=== PATIENT | male | born 1985 | race Caucasian/White ===

== ENCOUNTER 2017-09-05 11:39 | Inpatient (IN) | payer OTHER ==
[2017-09-05 12:21] VITALS: BMI 23.3
--- NOTE | 2017-09-05 14:03 | HP ---
KATHIE OWEN Rehab Assess/Revision - Admission History Admitted to Rehab from: [facility] Date of Admission to Rehab: 09/05/17 - Vital signs Vital Signs: Vital Signs Period Temp Pulse Resp BP Sys/[facility] Pulse Ox Last 24 Hr 97.6 F 62 17 130/78 - Findings Detox History & Physical reviewed: Yes Concur with findings: Yes Comments/Additional Findings: PT RETURNED TO FOLLOW UP WITH REHAB AFTER COMPLETING DETOX. Inpatient Rehab Admission - Initial Determination Are CD services needed?: Yes Free of communicable disease: Yes Not in need of hospitalization: Yes - Rehab Admission Criteria Patient is meeting Inpatient Rehab admission criteria:: Yes
[2017-09-05] MEDS ORDERED: MAGNESIUM HYDROX 2400MG/30ML ORAL SUSPENSION 30 ML CUP PO PRN (14:05)
[2017-09-05] MEDS ORDERED: MENTHOL/PHENOL 1 EACH UD MM PRN (14:05)
[2017-09-05] MEDS ORDERED: MAGNESIUM CITRATE 300 ML BOTTLE PO PRN (14:05)
[2017-09-05] MEDS ORDERED: hydrOXYzine PAMOATE 50 MG CAPSULE (FP) PO PRN (14:05)
[2017-09-05] MEDS ORDERED: LOPERAMIDE HCL 2 MG CAPSULE PO PRN (14:05)
[2017-09-05] MEDS ORDERED: MAG HYDROX/AL HYDROX/SIMETH 30 ML UNIT-DOSE CUP PO PRN (14:05)
[2017-09-05] MEDS ORDERED: P-EPHED 60MG/TRIPROLIDI 2.5MG TABLET PO PRN (14:05)
[2017-09-05] MEDS ORDERED: guaiFENesin/D-METHORPHAN HB 10 ML UNIT-DOSE CUPS PO PRN (14:05)
[2017-09-05] MEDS ORDERED: IBUPROFEN 400 MG TABLET (FP) PO PRN (14:05)
[2017-09-05] MEDS ORDERED: ACETAMINOPHEN 325 MG TABLET (FP) PO PRN (14:05)
[2017-09-05] MEDS: NICOTINE 21 MG/24 HOURS TOPICAL PATCH TD SCH (16:50)
[2017-09-05 18:55] LABS: URINE APPEARANCE CLEAR; URINE BILIRUBIN NEGATIVE (<2.0 mg/dL); URINE COLOR YELLOW; URINE GLUCOSE (UA) NEGATIVE (NEGATIVE); URINE KETONE NEGATIVE (NEGATIVE); URINE LEUK ESTERASE NEGATIVE (NEGATIVE); URINE NITRITE NEGATIVE (NEGATIVE); URINE PROTEIN NEGATIVE (NEGATIVE); URINE UROBILINOGEN NEGATIVE mg/dL (0.2-1.0)
[2017-09-05] MEDS: TRIAMCINOLONE ACET 0.1% CREAM 80 GM TUBE TP SCH (21:45)
[2017-09-05] MEDS: PATIENT'S OWN MEDICATION (NON-FORMULARY) (Cetirizine Hcl [Cetirizine Hcl] 10 MG) PO SCH (21:45)
[2017-09-05] MEDS: THIAMINE HCL 100 MG TABLET (FP) PO SCH (21:45)
[2017-09-05] MEDS ORDERED: PATIENT'S OWN MEDICATION (NON-FORMULARY) (Cetirizine Hcl [Cetirizine Hcl] 10 MG) PO SCH (22:00)
[2017-09-06] MEDS: NICOTINE 21 MG/24 HOURS TOPICAL PATCH TD SCH (10:54)
[2017-09-06] MEDS: PRENATAL VITAMINS W/ FOLIC ACID TABLET (FP) PO SCH (10:54)
[2017-09-06] MEDS: TRIAMCINOLONE ACET 0.1% CREAM 80 GM TUBE TP SCH ×2 (10:54→21:30)
[2017-09-06] MEDS: NICOTINE POLACRILEX 4 MG GUM BUC PRN (20:10)
[2017-09-06] MEDS: PATIENT'S OWN MEDICATION (NON-FORMULARY) (Cetirizine Hcl [Cetirizine Hcl] 10 MG) PO SCH (21:30)
[2017-09-06] MEDS: THIAMINE HCL 100 MG TABLET (FP) PO SCH (21:30)
[2017-09-06] MEDS: MELATONIN 5 MG TABLETS PO PRN (21:31)
[2017-09-07] MEDS: PRENATAL VITAMINS W/ FOLIC ACID TABLET (FP) PO SCH (10:42)
[2017-09-07] MEDS: NICOTINE 21 MG/24 HOURS TOPICAL PATCH TD SCH (10:42)
[2017-09-07] MEDS: TRIAMCINOLONE ACET 0.1% CREAM 80 GM TUBE TP SCH ×2 (10:43→21:40)
[2017-09-07] MEDS: NICOTINE POLACRILEX 4 MG GUM BUC PRN (19:31)
[2017-09-07] MEDS: PATIENT'S OWN MEDICATION (NON-FORMULARY) (Cetirizine Hcl [Cetirizine Hcl] 10 MG) PO SCH (21:39)
[2017-09-07] MEDS: THIAMINE HCL 100 MG TABLET (FP) PO SCH (21:39)
[2017-09-07] MEDS: MELATONIN 5 MG TABLETS PO PRN (21:39)
[2017-09-08] MEDS: TRIAMCINOLONE ACET 0.1% CREAM 80 GM TUBE TP SCH ×2 (11:04→21:49)
[2017-09-08] MEDS: PRENATAL VITAMINS W/ FOLIC ACID TABLET (FP) PO SCH (11:04)
[2017-09-08] MEDS: NICOTINE 21 MG/24 HOURS TOPICAL PATCH TD SCH (11:04)
--- NOTE | 2017-09-08 11:07 | HP ---
Psychiatrist Admission - Data Date of interview: 09/08/17 Admission source: [address] [place] [address] detox Identifying data: this is the first admission to [address] [place] [address] rehabilitation for this 31 yo singe male,resides with mother, supported by family. Medical History: HTN,Eczema. Psychiatric History: patient reports some anxiety on and off.he was prescribed Paxil 10 mg po daily while being in rehab recently.patient is willing to continue Paxil 10 mg po daily.No previous psychiatric hospitalizations.No suicidal attempts reported. Physical/Sexual Abuse/Trauma History: denies Vital Signs: Vital Signs - 24 hr 09/08/17 09/08/17 09/08/17 00:30 03:30 07:44 Temperature 97.8 F Pulse Rate 58 L Respiratory 18 18 16 Rate Blood Pressure 123/82 Allergies/Adverse Reactions: Allergies Allergy/AdvReac Type Severity Reaction Status Date / Time No Known Drug Allergies Allergy Verified 09/05/17 12:54 Fish Containing Products AdvReac Swelling Verified 09/05/17 12:54 peanut AdvReac Swelling Verified 09/05/17 12:54 Date of last physical exam: 09/05/17 Concur with the findings of this exam: Yes - Substance Abuse/Tx History Hx Alcohol Use: Yes (reports drinking since 18 yo,beer 12 pack daily) Hx Substance Use: Yes (cocaine since 20 ,1 g daily) Substance Use Type: Alcohol, Cocaine Hx Substance Use Treatment: Yes (reports only 6 months abstinence ) Mental Status Exam - Mental Status Exam Alert and Oriented to: Time, Place, Person Cognitive Function: Grossly Intact Patient Appearance: Well Groomed Mood: Euthymic Affect: Appropriate, Mood Congruent Patient Behavior: Cooperative Speech Pattern: Clear Voice Loudness: Normal Thought Process: Goal Oriented Thought Disorder: Not Present Hallucinations: Denies Suicidal Ideation: Denies Homicidal Ideation: Denies Insight/Judgement: Fair Sleep: Fair Appetite: Good Muscle strength/Tone: Normal Gait/Station: Normal Psychiatric Findings - Problem List ([place] 1, 2,3) (1) Nicotine dependence Current Visit: Yes Status: Chronic Qualifiers: Nicotine product type: cigarettes Substance use status: in withdrawal Qualified Code(s): F17.213 - Nicotine dependence, cigarettes, with withdrawal (2) Cocaine dependence, uncomplicated Current Visit: Yes Status: Chronic (3) Eczema Current Visit: Yes Status: Chronic (4) History of hypertension Current Visit: Yes Status: Suspected Comment: Jakub reports that he has not taken anti-hypertensive medication for approx. 1 month. (5) Alcohol dependence Current Visit: Yes Status: Acute (6) Substance induced mood disorder Current Visit: Yes Status: Chronic - Initial Treatment Plan Initial Treatment Plan: Paxil 10 mg po daILY. WILL MONITOR PROGRESS.
[2017-09-08] MEDS: NICOTINE POLACRILEX 4 MG GUM BUC PRN ×2 (11:52→18:48)
[2017-09-08] MEDS: PARoxetine HCL 10 MG TABLET (FP) PO SCH (12:27)
[2017-09-08] MEDS: THIAMINE HCL 100 MG TABLET (FP) PO SCH (21:47)
[2017-09-08] MEDS: PATIENT'S OWN MEDICATION (NON-FORMULARY) (Cetirizine Hcl [Cetirizine Hcl] 10 MG) PO SCH (21:47)
[2017-09-08] MEDS: MELATONIN 5 MG TABLETS PO PRN (21:48)
[2017-09-09] MEDS: NICOTINE 21 MG/24 HOURS TOPICAL PATCH TD SCH (10:42)
[2017-09-09] MEDS: PARoxetine HCL 10 MG TABLET (FP) PO SCH (10:42)
[2017-09-09] MEDS: PRENATAL VITAMINS W/ FOLIC ACID TABLET (FP) PO SCH (10:42)
[2017-09-09] MEDS: NICOTINE POLACRILEX 4 MG GUM BUC PRN ×2 (10:44→20:00)
[2017-09-09] MEDS: TRIAMCINOLONE ACET 0.1% CREAM 80 GM TUBE TP SCH ×2 (10:45→21:31)
[2017-09-09] MEDS: THIAMINE HCL 100 MG TABLET (FP) PO SCH (21:31)
[2017-09-09] MEDS: MELATONIN 5 MG TABLETS PO PRN (21:31)
[2017-09-09] MEDS: PATIENT'S OWN MEDICATION (NON-FORMULARY) (Cetirizine Hcl [Cetirizine Hcl] 10 MG) PO SCH (21:31)
[2017-09-10] MEDS: NICOTINE POLACRILEX 4 MG GUM BUC PRN ×4 (06:34→22:01)
[2017-09-10] MEDS: PARoxetine HCL 10 MG TABLET (FP) PO SCH (10:57)
[2017-09-10] MEDS: NICOTINE 21 MG/24 HOURS TOPICAL PATCH TD SCH (10:58)
[2017-09-10] MEDS: PRENATAL VITAMINS W/ FOLIC ACID TABLET (FP) PO SCH (10:58)
[2017-09-10] MEDS: TRIAMCINOLONE ACET 0.1% CREAM 80 GM TUBE TP SCH ×2 (10:58→22:01)
[2017-09-10] MEDS: MELATONIN 5 MG TABLETS PO PRN (22:01)
[2017-09-10] MEDS: PATIENT'S OWN MEDICATION (NON-FORMULARY) (Cetirizine Hcl [Cetirizine Hcl] 10 MG) PO SCH (22:01)
[2017-09-10] MEDS: THIAMINE HCL 100 MG TABLET (FP) PO SCH (22:01)
[2017-09-11] MEDS: TRIAMCINOLONE ACET 0.1% CREAM 80 GM TUBE TP SCH ×2 (10:29→21:31)
[2017-09-11] MEDS: NICOTINE 21 MG/24 HOURS TOPICAL PATCH TD SCH (10:29)
[2017-09-11] MEDS: PRENATAL VITAMINS W/ FOLIC ACID TABLET (FP) PO SCH (10:30)
[2017-09-11] MEDS: PARoxetine HCL 10 MG TABLET (FP) PO SCH (10:30)
[2017-09-11] MEDS: NICOTINE POLACRILEX 4 MG GUM BUC PRN ×4 (10:31→21:32)
[2017-09-11] MEDS: THIAMINE HCL 100 MG TABLET (FP) PO SCH (21:30)
[2017-09-11] MEDS: PATIENT'S OWN MEDICATION (NON-FORMULARY) (Cetirizine Hcl [Cetirizine Hcl] 10 MG) PO SCH (21:31)
[2017-09-11] MEDS: MELATONIN 5 MG TABLETS PO PRN (21:32)
[2017-09-12] MEDS: PRENATAL VITAMINS W/ FOLIC ACID TABLET (FP) PO SCH (10:44)
[2017-09-12] MEDS: PARoxetine HCL 10 MG TABLET (FP) PO SCH (10:45)
[2017-09-12] MEDS: NICOTINE 21 MG/24 HOURS TOPICAL PATCH TD SCH (10:45)
[2017-09-12] MEDS: TRIAMCINOLONE ACET 0.1% CREAM 80 GM TUBE TP SCH ×2 (10:45→21:59)
[2017-09-12] MEDS: NICOTINE POLACRILEX 4 MG GUM BUC PRN ×2 (12:31→22:01)
[2017-09-12] MEDS: PATIENT'S OWN MEDICATION (NON-FORMULARY) (Cetirizine Hcl [Cetirizine Hcl] 10 MG) PO SCH (21:59)
[2017-09-12] MEDS: THIAMINE HCL 100 MG TABLET (FP) PO SCH (21:59)
[2017-09-12] MEDS: MELATONIN 5 MG TABLETS PO PRN (22:01)
[2017-09-13] MEDS: PRENATAL VITAMINS W/ FOLIC ACID TABLET (FP) PO SCH (10:40)
[2017-09-13] MEDS: TRIAMCINOLONE ACET 0.1% CREAM 80 GM TUBE TP SCH ×2 (10:40→21:51)
[2017-09-13] MEDS: PARoxetine HCL 10 MG TABLET (FP) PO SCH (10:40)
[2017-09-13] MEDS: NICOTINE 21 MG/24 HOURS TOPICAL PATCH TD SCH (10:40)
[2017-09-13] MEDS: NICOTINE POLACRILEX 4 MG GUM BUC PRN ×4 (10:41→21:53)
[2017-09-13] MEDS: THIAMINE HCL 100 MG TABLET (FP) PO SCH (21:52)
[2017-09-13] MEDS: MELATONIN 5 MG TABLETS PO PRN (21:52)
[2017-09-13] MEDS: PATIENT'S OWN MEDICATION (NON-FORMULARY) (Cetirizine Hcl [Cetirizine Hcl] 10 MG) PO SCH (21:52)
[2017-09-14] MEDS: PRENATAL VITAMINS W/ FOLIC ACID TABLET (FP) PO SCH (10:18)
[2017-09-14] MEDS: PARoxetine HCL 10 MG TABLET (FP) PO SCH (10:18)
[2017-09-14] MEDS: NICOTINE POLACRILEX 4 MG GUM BUC PRN ×4 (10:19→21:52)
[2017-09-14] MEDS: NICOTINE 21 MG/24 HOURS TOPICAL PATCH TD SCH (10:19)
[2017-09-14] MEDS: TRIAMCINOLONE ACET 0.1% CREAM 80 GM TUBE TP SCH ×2 (10:21→21:59)
[2017-09-14] MEDS: PATIENT'S OWN MEDICATION (NON-FORMULARY) (Cetirizine Hcl [Cetirizine Hcl] 10 MG) PO SCH (21:52)
[2017-09-14] MEDS: MELATONIN 5 MG TABLETS PO PRN (21:52)
[2017-09-14] MEDS: THIAMINE HCL 100 MG TABLET (FP) PO SCH (21:52)
[2017-09-15] MEDS: PRENATAL VITAMINS W/ FOLIC ACID TABLET (FP) PO SCH (10:25)
[2017-09-15] MEDS: TRIAMCINOLONE ACET 0.1% CREAM 80 GM TUBE TP SCH ×2 (10:26→21:33)
[2017-09-15] MEDS: NICOTINE 21 MG/24 HOURS TOPICAL PATCH TD SCH (10:26)
[2017-09-15] MEDS: PARoxetine HCL 10 MG TABLET (FP) PO SCH (10:26)
[2017-09-15] MEDS: NICOTINE POLACRILEX 4 MG GUM BUC PRN ×3 (10:27→21:32)
[2017-09-15] MEDS: THIAMINE HCL 100 MG TABLET (FP) PO SCH (21:32)
[2017-09-15] MEDS: MELATONIN 5 MG TABLETS PO PRN (21:32)
[2017-09-15] MEDS: PATIENT'S OWN MEDICATION (NON-FORMULARY) (Cetirizine Hcl [Cetirizine Hcl] 10 MG) PO SCH (21:33)
[2017-09-16] MEDS ORDERED: PT OWN MED DRAWER 7, Y5N ONE (09:10)
[2017-09-16] MEDS: NICOTINE 21 MG/24 HOURS TOPICAL PATCH TD SCH (10:34)
[2017-09-16] MEDS: PARoxetine HCL 10 MG TABLET (FP) PO SCH (10:34)
[2017-09-16] MEDS: TRIAMCINOLONE ACET 0.1% CREAM 80 GM TUBE TP SCH ×2 (10:34→21:34)
[2017-09-16] MEDS: PRENATAL VITAMINS W/ FOLIC ACID TABLET (FP) PO SCH (10:34)
[2017-09-16] MEDS: NICOTINE POLACRILEX 4 MG GUM BUC PRN ×2 (10:34→17:20)
[2017-09-16] MEDS: THIAMINE HCL 100 MG TABLET (FP) PO SCH (21:34)
[2017-09-16] MEDS: PATIENT'S OWN MEDICATION (NON-FORMULARY) (Cetirizine Hcl [Cetirizine Hcl] 10 MG) PO SCH (21:34)
[2017-09-16] MEDS: MELATONIN 5 MG TABLETS PO PRN (21:35)
[2017-09-17] MEDS: NICOTINE POLACRILEX 4 MG GUM BUC PRN ×5 (07:53→20:06)
[2017-09-17] MEDS: PRENATAL VITAMINS W/ FOLIC ACID TABLET (FP) PO SCH (10:40)
[2017-09-17] MEDS: PARoxetine HCL 10 MG TABLET (FP) PO SCH (10:41)
[2017-09-17] MEDS: NICOTINE 21 MG/24 HOURS TOPICAL PATCH TD SCH (10:41)
[2017-09-17] MEDS: TRIAMCINOLONE ACET 0.1% CREAM 80 GM TUBE TP SCH ×2 (10:41→21:47)
[2017-09-17] MEDS: PATIENT'S OWN MEDICATION (NON-FORMULARY) (Cetirizine Hcl [Cetirizine Hcl] 10 MG) PO SCH (21:48)
[2017-09-17] MEDS: MELATONIN 5 MG TABLETS PO PRN (21:48)
[2017-09-17] MEDS: THIAMINE HCL 100 MG TABLET (FP) PO SCH (21:48)
[2017-09-18 07:21] VITALS: BP 140/78; PULSE 60; TEMP 97.8
[2017-09-18] MEDS: NICOTINE POLACRILEX 4 MG GUM BUC PRN (08:03)
[2017-09-18] MEDS: PARoxetine HCL 10 MG TABLET (FP) PO SCH (09:52)
[2017-09-18] MEDS: TRIAMCINOLONE ACET 0.1% CREAM 80 GM TUBE TP SCH (09:52)
[2017-09-18] MEDS: PRENATAL VITAMINS W/ FOLIC ACID TABLET (FP) PO SCH (09:52)
[2017-09-18] MEDS: NICOTINE 21 MG/24 HOURS TOPICAL PATCH TD SCH (09:52)
--- NOTE | 2017-09-18 10:07 | PN ---
Psychiatric Progress Note Vital Signs: Vital Signs Period Temp Pulse Resp BP Sys/[facility] Pulse Ox Last 24 Hr 97.8 F 60 18-18 140/78 Date of Session: 09/18/17 Chief Complaint:: "Discharge" HPI: Patient admitted to rehab for alcohol and cocaine dependence. ROS: HTN,Eczema. Current Medications: Active Medications Generic Name Dose Route Start Last Admin Trade Name Freq PRN Reason Stop Dose Admin Acetaminophen 650 mg 09/05/17 14:05 Tylenol - PO Q4H PRN FEVER Al Hydroxide/Mg Hydroxide 30 ml 09/05/17 14:05 Mylanta Oral Suspension - PO Q6H PRN DYSPEPSIA Eucalyptus/Menthol/Phenol/Sorbitol 1 each 09/05/17 14:05 Cepastat Lozenge - MM Q4H PRN SORE THROAT Guaifenesin 10 ml 09/05/17 14:05 Robitussin Dm - PO Q6H PRN COUGH Hydroxyzine Pamoate 50 mg 09/05/17 14:05 Vistaril - PO Q4H PRN AGITATION Ibuprofen 400 mg 09/05/17 14:05 Motrin - PO Q6H PRN Pain level 4-6 Loperamide HCl 4 mg 09/05/17 14:05 09/06/17 16:43 Imodium - PO 4 mg Q6H PRN Administration DIARRHEA Magnesium Citrate 300 ml 09/05/17 14:05 Citroma - PO Q48H PRN CONSTIPATION Magnesium Hydroxide 30 ml 09/05/17 14:05 Milk Of Magnesia - PO DAILY PRN CONSTIPATION Melatonin 5 mg 09/05/17 22:00 09/17/17 21:48 Melatonin PO 5 mg HS PRN Administration INSOMNIA Nicotine 21 mg 09/05/17 14:35 09/18/17 09:52 Nicoderm Patch - TD Not Given DAILY ELIEL Nicotine Polacrilex 4 mg 09/05/17 14:05 09/18/17 08:03 Nicorette Gum - BUC 4 mg Q2H PRN Administration NICOTINE REPLACEMENT RX Non-Formulary Medication 10 mg 09/05/17 22:00 09/17/17 21:48 Cetirizine Hcl [Cetirizine Hcl] PO 10 mg HS ELIEL Administration Paroxetine HCl 10 mg 09/08/17 11:45 09/18/17 09:52 Paxil - PO 10 mg DAILY ELIEL Administration Multivit/Folic Acid/Iron 1 tab 09/06/17 10:00 09/18/17 09:52 Vitamins (Sjr) - PO 1 tab DAILY ELIEL Administration Pseudoephedrine/Triprolidine 1 combo 09/05/17 14:05 Actifed - PO TID PRN NASAL CONGESTION Thiamine HCl 100 mg 09/05/17 22:00 09/17/17 21:48 Vitamin B1 - PO 100 mg HS ELIEL Administration Triamcinolone Acetonide 1 applic 09/05/17 22:00 09/18/17 09:52 Triamcinolone Acetonide TP Not Given BID ELIEL Medication(s) Change(s): No. Current Side Effect: No Lab tests ordered: No Lab tests reviewed: Yes Provider note:: Patient completed the rehabilitation program on 09/18/17. He has met his treatment goals and is able to identify behaviors that contribute to relapsing. Through participation of this program patient has learned the importance of changing his behavior and the need for more structure in his life. Patient will continue to address his issues at the [facility] outpatient program in [place]. A prescription of Paxil 10mg for 30 days was electronically sent to [facility] at [address] [place] [address]. Patient is stable for discharge on 09/18/17. Total face to face time:: 35 Mental Status Exam - Mental Status Exam Alert and Oriented to: Time, Place, Person Cognitive Function: Good Patient Appearance: Well Groomed Mood: Hopeful Affect: Mood Congruent Patient Behavior: Appropriate, Cooperative Speech Pattern: Clear, Appropriate Voice Loudness: Normal Thought Process: Intact, Goal Oriented Thought Disorder: Not Present Hallucinations: Denies Suicidal Ideation: Denies Homicidal Ideation: Denies Insight/Judgement: Good Sleep: Well Appetite: Good Muscle strength/Tone: Normal Gait/Station: Normal Psychiatric Treatment Plan - Problem List (1) Alcohol dependence Current Visit: Yes (2) Eczema Current Visit: Yes (3) Nicotine dependence Current Visit: Yes Qualifiers: Nicotine product type: cigarettes Substance use status: in withdrawal Qualified Code(s): F17.213 - Nicotine dependence, cigarettes, with withdrawal (4) History of hypertension Current Visit: Yes Comment: Jakub reports that he has not taken anti- hypertensive medication for approx. 1 month. (5) Cocaine dependence, uncomplicated Current Visit: Yes
== END 2017-09-18 10:45 | disposition home or self-care (01) | DRG 774 ==
LOC: YASAS 11:39 → Y5N 14:15
PROVIDERS: ADMIT Psychiatry & Neurology Psychiatry; ATTEND Psychiatry & Neurology Psychiatry
PROC: HZ2ZZZZ Detoxification Services for Substance Abuse Treatment (ICD-10-PCS; principal; 2017-09-05)
DX: F10.20 Alcohol dependence, uncomplicated (principal); F14.20 Cocaine dependence, uncomplicated; F17.213 Nicotine dependence, cigarettes, with withdrawal; F19.24 Other psychoactive substance dependence with psychoactive substance-induced mood disorder; I10 Essential (primary) hypertension; L30.9 Dermatitis, unspecified
CPT/HCPCS: 81003

== ENCOUNTER 2020-01-10 08:26 | Inpatient (IN) | payer OTHER ==
[2020-01-10 09:40] VITALS: BMI 26.5
[2020-01-10] MEDS ORDERED: LORazepam 2 MG/ML SDV VIAL ONE (10:31)
[2020-01-10] MEDS ORDERED: MAGNESIUM CITRATE 300 ML BOTTLE PO PRN (11:26)
[2020-01-10] MEDS ORDERED: ACETAMINOPHEN 325 MG TABLET (FP) PO PRN (11:26)
[2020-01-10] MEDS ORDERED: guaiFENesin 200 MG/10 ML 10 ML UNIT-DOSE CUPS PO PRN (11:26)
[2020-01-10] MEDS ORDERED: IBUPROFEN 400 MG TABLET (FP) PO PRN (11:26)
[2020-01-10] MEDS ORDERED: MAGNESIUM HYDROX 2400MG/30ML ORAL SUSPENSION 30 ML CUP PO PRN (11:26)
[2020-01-10] MEDS ORDERED: MAG HYDROX/AL HYDROX/SIMETH 30 ML UNIT-DOSE CUP PO PRN (11:26)
[2020-01-10] MEDS ORDERED: P-EPHED 60MG/TRIPROLIDI 2.5MG TABLET PO PRN (11:26)
[2020-01-10] MEDS ORDERED: LOPERAMIDE HCL 2 MG CAPSULE PO PRN (11:26)
[2020-01-10] MEDS: NICOTINE 14 MG/24 HOURS TOPICAL PATCH TD SCH (12:16)
[2020-01-10] MEDS: PRENATAL VITAMINS W/ FOLIC ACID TABLET (FP) PO SCH (12:16)
[2020-01-10] MEDS: NICOTINE POLACRILEX 2 MG GUM BUC PRN ×2 (12:36→18:03)
[2020-01-10] MEDS ORDERED: hydrOXYzine PAMOATE 25 MG CAPSULE (FP) PO SCH (14:00)
[2020-01-10 15:17] LABS: HEMATOCRIT 46.1 % (35.4-49); HEMOGLOBIN 15.5 GM/dL (11.7-16.9); MCH 30.9 pg (25.7-33.7); MCHC 33.7 g/dl (32.0-35.9); MEAN CELL VOLUME 91.6 fl (80-96); MEAN PLT VOLUME 7.6 fl (7.5-11.1); PLATELET COUNT 312 K/MM3 (134-434); RBC 5.03 M/mm3 (4.00-5.60); WHITE BLOOD COUNT 9.4 K/mm3 (4.0-10.0)
[2020-01-10 15:21] LABS: ALBUMIN 3.8 g/dl (3.4-5.0); BLOOD UREA NITROGEN 9.2 mg/dL (7-18); CALCIUM 9.2 mg/dL (8.5-10.1)
[2020-01-10 15:23] LABS: SICKLE CELL SCREEN NEGATIVE (NEGATIVE)
[2020-01-10 15:26] LABS: BILIRUBIN,TOTAL 0.6 mg/dL (0.2-1)
[2020-01-10 17:53] LABS: PH,URINE 5.5 (5.0-8.0); URINE APPEARANCE TURBID; URINE BILIRUBIN NEGATIVE (NEGATIVE); URINE COLOR YELLOW; URINE GLUCOSE (UA) NEGATIVE (NEGATIVE); URINE KETONE NEGATIVE (NEGATIVE); URINE LEUK ESTERASE NEGATIVE (NEGATIVE); URINE NITRITE NEGATIVE (NEGATIVE); URINE PROTEIN NEGATIVE (NEGATIVE)
[2020-01-10] MEDS: MELATONIN 5 MG TABLETS PO SCH (21:57)
[2020-01-10] MEDS: THIAMINE HCL 100 MG TABLET (FP) PO SCH (21:57)
[2020-01-11] MEDS: NICOTINE POLACRILEX 2 MG GUM BUC PRN ×6 (07:04→21:10)
[2020-01-11] MEDS: NICOTINE 14 MG/24 HOURS TOPICAL PATCH TD SCH (09:46)
[2020-01-11] MEDS: PRENATAL VITAMINS W/ FOLIC ACID TABLET (FP) PO SCH (09:46)
[2020-01-11] MEDS: hydrOXYzine PAMOATE 50 MG CAPSULE (FP) PO PRN ×2 (09:48→21:09)
[2020-01-11] MEDS ORDERED: MASKS NR ONE (12:54)
[2020-01-11] MEDS: THIAMINE HCL 100 MG TABLET (FP) PO SCH (21:09)
[2020-01-11] MEDS: MELATONIN 5 MG TABLETS PO SCH (21:09)
[2020-01-12] MEDS: NICOTINE POLACRILEX 2 MG GUM BUC PRN ×5 (07:47→21:31)
[2020-01-12] MEDS: hydrOXYzine PAMOATE 50 MG CAPSULE (FP) PO PRN ×2 (10:06→21:30)
[2020-01-12] MEDS: PRENATAL VITAMINS W/ FOLIC ACID TABLET (FP) PO SCH (10:06)
[2020-01-12] MEDS: NICOTINE 14 MG/24 HOURS TOPICAL PATCH TD SCH (10:06)
[2020-01-12] MEDS: MELATONIN 5 MG TABLETS PO SCH (21:30)
[2020-01-12] MEDS: THIAMINE HCL 100 MG TABLET (FP) PO SCH (21:30)
[2020-01-13] MEDS: NICOTINE POLACRILEX 2 MG GUM BUC PRN ×4 (07:51→21:17)
[2020-01-13] MEDS: NICOTINE 14 MG/24 HOURS TOPICAL PATCH TD SCH (09:35)
[2020-01-13] MEDS: PRENATAL VITAMINS W/ FOLIC ACID TABLET (FP) PO SCH (09:35)
[2020-01-13] MEDS: hydrOXYzine PAMOATE 50 MG CAPSULE (FP) PO PRN ×2 (09:35→21:16)
[2020-01-13] MEDS: THIAMINE HCL 100 MG TABLET (FP) PO SCH (21:15)
[2020-01-13] MEDS: MELATONIN 5 MG TABLETS PO SCH (21:16)
[2020-01-14] MEDS: NICOTINE POLACRILEX 2 MG GUM BUC PRN ×5 (07:44→20:54)
[2020-01-14] MEDS: hydrOXYzine PAMOATE 50 MG CAPSULE (FP) PO PRN ×2 (10:01→21:16)
[2020-01-14] MEDS: PRENATAL VITAMINS W/ FOLIC ACID TABLET (FP) PO SCH (10:01)
[2020-01-14] MEDS: NICOTINE 14 MG/24 HOURS TOPICAL PATCH TD SCH (10:01)
[2020-01-14] MEDS: THIAMINE HCL 100 MG TABLET (FP) PO SCH (21:15)
[2020-01-14] MEDS: MELATONIN 5 MG TABLETS PO SCH (21:15)
[2020-01-15] MEDS: NICOTINE POLACRILEX 2 MG GUM BUC PRN ×4 (08:28→21:14)
[2020-01-15] MEDS: hydrOXYzine PAMOATE 50 MG CAPSULE (FP) PO PRN ×2 (08:28→21:13)
[2020-01-15] MEDS: PRENATAL VITAMINS W/ FOLIC ACID TABLET (FP) PO SCH (09:09)
[2020-01-15] MEDS: NICOTINE 14 MG/24 HOURS TOPICAL PATCH TD SCH (09:09)
[2020-01-15] MEDS: MELATONIN 5 MG TABLETS PO SCH (21:12)
[2020-01-15] MEDS: THIAMINE HCL 100 MG TABLET (FP) PO SCH (21:12)
[2020-01-16] MEDS: NICOTINE POLACRILEX 2 MG GUM BUC PRN ×6 (06:59→19:45)
[2020-01-16] MEDS: hydrOXYzine PAMOATE 50 MG CAPSULE (FP) PO PRN ×2 (09:02→21:27)
[2020-01-16] MEDS: PRENATAL VITAMINS W/ FOLIC ACID TABLET (FP) PO SCH (09:02)
[2020-01-16] MEDS: NICOTINE 14 MG/24 HOURS TOPICAL PATCH TD SCH (09:02)
[2020-01-16] MEDS ORDERED: MASKS NR ONE (19:32)
[2020-01-16] MEDS: THIAMINE HCL 100 MG TABLET (FP) PO SCH (21:27)
[2020-01-16] MEDS: MELATONIN 5 MG TABLETS PO SCH (21:27)
[2020-01-17] MEDS: NICOTINE POLACRILEX 2 MG GUM BUC PRN ×2 (07:16→09:49)
[2020-01-17] MEDS: PRENATAL VITAMINS W/ FOLIC ACID TABLET (FP) PO SCH (09:48)
[2020-01-17] MEDS: hydrOXYzine PAMOATE 50 MG CAPSULE (FP) PO PRN ×2 (09:48→21:26)
[2020-01-17] MEDS: NICOTINE 14 MG/24 HOURS TOPICAL PATCH TD SCH (09:48)
[2020-01-17] MEDS: NICOTINE POLACRILEX 4 MG GUM BUC PRN ×4 (12:42→21:27)
[2020-01-17] MEDS: MELATONIN 5 MG TABLETS PO SCH (21:26)
[2020-01-17] MEDS: THIAMINE HCL 100 MG TABLET (FP) PO SCH (21:26)
[2020-01-18] MEDS: NICOTINE POLACRILEX 4 MG GUM BUC PRN ×5 (07:48→19:45)
[2020-01-18] MEDS: hydrOXYzine PAMOATE 50 MG CAPSULE (FP) PO PRN ×2 (09:37→21:19)
[2020-01-18] MEDS: PRENATAL VITAMINS W/ FOLIC ACID TABLET (FP) PO SCH (09:37)
[2020-01-18] MEDS: NICOTINE 14 MG/24 HOURS TOPICAL PATCH TD SCH (09:37)
[2020-01-18] MEDS: MELATONIN 5 MG TABLETS PO SCH (21:19)
[2020-01-18] MEDS: THIAMINE HCL 100 MG TABLET (FP) PO SCH (21:19)
[2020-01-19] MEDS: NICOTINE POLACRILEX 4 MG GUM BUC PRN ×5 (07:46→21:28)
[2020-01-19] MEDS: PRENATAL VITAMINS W/ FOLIC ACID TABLET (FP) PO SCH (09:50)
[2020-01-19] MEDS: NICOTINE 14 MG/24 HOURS TOPICAL PATCH TD SCH (09:51)
[2020-01-19] MEDS: hydrOXYzine PAMOATE 50 MG CAPSULE (FP) PO PRN ×2 (09:52→21:28)
[2020-01-19] MEDS: MELATONIN 5 MG TABLETS PO SCH (21:28)
[2020-01-19] MEDS: THIAMINE HCL 100 MG TABLET (FP) PO SCH (21:28)
[2020-01-20 06:50] VITALS: BP 121/85; PULSE 68; TEMP 97.9
[2020-01-20] MEDS: NICOTINE POLACRILEX 4 MG GUM BUC PRN ×2 (07:09→09:37)
[2020-01-20] MEDS: PRENATAL VITAMINS W/ FOLIC ACID TABLET (FP) PO SCH (09:37)
[2020-01-20] MEDS: NICOTINE 14 MG/24 HOURS TOPICAL PATCH TD SCH (09:37)
[2020-01-20] MEDS: hydrOXYzine PAMOATE 50 MG CAPSULE (FP) PO PRN (09:37)
== END 2020-01-20 11:28 | disposition home or self-care (01) | DRG 772 ==
LOC: YASAS 08:26 → Y3W 11:27
PROVIDERS: ADMIT Allergy & Immunology; ATTEND Allergy & Immunology
PROC: HZ42ZZZ Group Counseling for Substance Abuse Treatment, Cognitive-Behavioral (ICD-10-PCS; principal; 2020-01-10)
DX: F10.20 Alcohol dependence, uncomplicated (principal); F14.20 Cocaine dependence, uncomplicated; F17.210 Nicotine dependence, cigarettes, uncomplicated; F19.282 Other psychoactive substance dependence with psychoactive substance-induced sleep disorder; F19.280 Other psychoactive substance dependence with psychoactive substance-induced anxiety disorder; F41.9 Anxiety disorder, unspecified; F32.9 Major depressive disorder, single episode, unspecified; F90.9 Attention-deficit hyperactivity disorder, unspecified type; I10 Essential (primary) hypertension; L30.9 Dermatitis, unspecified; Z62.810 Personal history of physical and sexual abuse in childhood; Z91.013 Allergy to seafood; Z91.010 Allergy to peanuts; Z88.8 Allergy status to other drugs, medicaments and biological substances
CPT/HCPCS: 36415; 80053; 81003; 85027; 85660; 86780; C9803; U0003